=== PATIENT | female | born 1950 | race Caucasian/White ===

== ENCOUNTER 2016-09-09 05:44 | Day surgery (SDC) | payer MEDICARE, OTHER ==
[~2016-09-09] VITALS: Ht 157.5 cm; Wt 67.7 kg
[~2016-09-09 05:44] MED LIST: AMIT50TA3 PO; BACL10TA PO; LEVE500T53 PO; LEVO25TA9 PO; MONT10TA21 PO; MORP10CA8 PO; OMEP20 PO; PERCT10 PO; PRED10 PO
[2016-09-09] MEDS ORDERED: SODIUM CHLORIDE 0.9% 1,000 ML IV ONE ×2 (06:03→06:15)
[2016-09-09] MEDS ORDERED: ALBU8.5H IH (06:16)
[2016-09-09] MEDS ORDERED: MOME13HF2 IH (06:16)
[2016-09-09] MEDS ORDERED: MIDAZOLAM HCL 2 MG/2 ML VIAL ONE (07:44)
[2016-09-09] MEDS ORDERED: FentaNYL CITRATE-PF 100 MCG/2 ML VIAL ONE (07:44)
[2016-09-09] MEDS ORDERED: LIDOCAINE HCL 4% 50 ML SOLUTION TP ONE (17:03)
[2016-09-09] MEDS ORDERED: LIDOCAINE HCL 2% 30 ML JELLY TP ONE (17:03)
[2016-09-09] MEDS ORDERED: BENZOCAINE 20% 50 MCG/SPRAY 57 GM TP ONE (17:03)
[2016-09-09] MEDS ORDERED: ALBUTEROL SULFATE 2.5 MG/0.5 ML NEB SOLUTION NEB ONE (17:03)
[2016-09-09] MEDS ORDERED: OXYGEN THERAPY IH SCH (20:00)
== END 2016-09-09 09:55 | disposition home or self-care (01) ==
LOC: SURGERY 05:44
PROVIDERS: ATTEND Internal Medicine Critical Care Medicine
DX: J38.4 Edema of larynx (principal); B37.0 Candidal stomatitis; J45.909 Unspecified asthma, uncomplicated; J44.9 Chronic obstructive pulmonary disease, unspecified; E03.9 Hypothyroidism, unspecified; D64.9 Anemia, unspecified; G89.29 Other chronic pain; M54.2 Cervicalgia; Z88.8 Allergy status to other drugs, medicaments and biological substances; Z72.89 Other problems related to lifestyle; Z90.49 Acquired absence of other specified parts of digestive tract; Z98.890 Other specified postprocedural states; Z87.891 Personal history of nicotine dependence; Z86.19 Personal history of other infectious and parasitic diseases; Z87.01 Personal history of pneumonia (recurrent)
CPT/HCPCS: 31623; 31624; 71010; 87015; 87070; 87101; 87205; 87220; J2250; J3010; J7030; 88108; 88312

== ENCOUNTER 2018-08-15 09:01 | Day surgery (SDC) | payer OTHER ==
[~2018-08-15] VITALS: Ht 162.6 cm; Wt 64.5 kg
[~2018-08-15 09:01] MED LIST changes: +ALBU8.5H8 IH; +MOME13HF2 IH
[2018-08-15] MEDS ORDERED: SODIUM CHLORIDE 0.9% 1,000 ML IV ONE (09:10)
[2018-08-15] MEDS ORDERED: TRAZ150T79 PO (10:00)
[2018-08-15] MEDS: SODIUM CHLORIDE 0.9% 1,000 ML IV ONE (10:36)
[2018-08-15] MEDS ORDERED: PROPOFOL 1% 20 ML VIAL IVP ONE (12:00)
[2018-08-15] MEDS ORDERED: LIDOCAINE/PF 2% 5 ML VIAL INJ ONE (12:00)
[2018-08-15] MEDS ORDERED: OXYGEN THERAPY IH SCH (20:00)
== END 2018-08-15 12:50 | disposition home or self-care (01) ==
LOC: SURGERY 09:01
PROVIDERS: ATTEND Specialist
DX: Z12.11 Encounter for screening for malignant neoplasm of colon (principal); D12.4 Benign neoplasm of descending colon; D12.5 Benign neoplasm of sigmoid colon; K59.00 Constipation, unspecified; G89.29 Other chronic pain; E27.40 Unspecified adrenocortical insufficiency; J44.9 Chronic obstructive pulmonary disease, unspecified; E03.9 Hypothyroidism, unspecified; M19.90 Unspecified osteoarthritis, unspecified site; H54.61 Unqualified visual loss, right eye, normal vision left eye; I25.2 Old myocardial infarction; Z86.69 Personal history of other diseases of the nervous system and sense organs; Z87.891 Personal history of nicotine dependence; Z72.89 Other problems related to lifestyle; Z86.74 Personal history of sudden cardiac arrest; Z86.19 Personal history of other infectious and parasitic diseases; Z79.891 Long term (current) use of opiate analgesic; Z86.2 Personal history of diseases of the blood and blood-forming organs and certain disorders involving the immune mechanism; Z90.89 Acquired absence of other organs; Z88.5 Allergy status to narcotic agent; Z90.49 Acquired absence of other specified parts of digestive tract; Z88.8 Allergy status to other drugs, medicaments and biological substances; Z79.899 Other long term (current) drug therapy; Z98.890 Other specified postprocedural states; Z82.5 Family history of asthma and other chronic lower respiratory diseases; Z82.49 Family history of ischemic heart disease and other diseases of the circulatory system
CPT/HCPCS: 45385; 88305; C1769; J2704; J3490; J7030